=== PATIENT | male | born 1940 | race Caucasian/White ===

== ENCOUNTER 2022-10-20 02:02 | Emergency (ER) | payer OTHER, MEDICARE ==
[2022-10-20 02:14] VITALS: BP 138/85; PULSE 95; RESP 18; TEMP 99.2; BMI 21.9
[2022-10-20] MEDS ORDERED: ONDANSETRON 4 MG/2 ML VIAL ONE (02:26)
[2022-10-20] MEDS ORDERED: ONDANSETRON 4 MG/2 ML VIAL IVPB ONE (02:29)
[2022-10-20] MEDS ORDERED: METOCLOPRAMIDE HCL INJECTION 10 MG/2 ML VIAL IVPUSH ONE (02:32)
[2022-10-20 04:38] LABS: ALBUMIN 3.8 g/dl (3.4-5.0); BILIRUBIN,TOTAL 0.6 mg/dL (0.2-1); BLOOD UREA NITROGEN 29.2 mg/dL (7-18); CALCIUM 9.2 mg/dL (8.5-10.1); CREATININE 1.2 mg/dL (0.55-1.3)
[2022-10-20] MEDS ORDERED: METOCLOPRAMIDE HCL INJECTION 10 MG/2 ML VIAL ONE (05:03)
== END 2022-10-20 07:30 | disposition home or self-care (01) ==
LOC: FER 02:02
PROC: 3E033GC Introduction of Other Therapeutic Substance into Peripheral Vein, Percutaneous Approach (ICD-10-PCS; principal; 2022-10-20)
DX: R07.89 Other chest pain (principal)
CPT/HCPCS: 0241U-QW; 36415; 80053; 82550; 84484; 93005; 99284-25

== ENCOUNTER 2024-06-01 11:50 | Emergency (ER) | payer OTHER, MEDICARE ==
[2024-06-01 12:06] VITALS: BP 142/88; PULSE 66; RESP 20; TEMP 97.3; BMI 22.4
== END 2024-06-01 15:18 | disposition home or self-care (01) ==
LOC: FER 11:50
DX: M79.605 Pain in left leg (principal)
CPT/HCPCS: 93971-TC; 99284-25